=== PATIENT | male | born 1980 | race African-American/Black ===

== ENCOUNTER 2024-02-28 11:38 | Observation (INO) | payer OTHER, SELFPAY ==
[2024-02-28] VITALS (12 sets, daily range): BP systolic 114–133; BP diastolic 80–90; PULSE 68–92; RESP 18–26; TEMP 36.3–36.6; O2SAT 98–100; BMI 25.2
[2024-02-28 11:45] LABS: Glucose Point of Care > 500 mg/dl (65-105)
[2024-02-28 12:05] LABS: Basophils Absolute Auto 0.1 K/mm3 (0.0-0.1); Basophils Percent Auto 0.8 % (0.2-1.2); Eosinophils Absolute Auto 0.2 K/mm3 (0-0.3); Eosinophils Percent Auto 1.9 % (0-4.4); Hematocrit 47.2 % (42.0-52.0); Immature Granulocyte Absolute 0.04 K/mm3 (0.00-0.031); Immature Granulocyte Percent A 0.5 % (0-0.5); Lymphocytes Absolute Auto 2.63 K/mm3 (0.9-3.2); Lymphocytes Percent Auto 34.2 % (18.3-44.2); Mean Corpuscular HGB Conc 33.9 g/dl (32-36); Mean Corpuscular Hemoglobin 32.3 pg (26-34); Mean Corpuscular Volume 95.4 fl (80-100); Mean Platelet Volume 9.7 fl (7.4-10.4); Monocytes Absolute Auto 0.5 K/mm3 (0.1-0.6); Neutrophils Absolute Auto 4.4 K/mm3 (1.3-6.7); Neutrophils Percent Auto 56.6 % (45.5-73.1); Platelet Count Result 267 k/mm3 (150-375); Red Blood Count 4.95 M/mm3 (4.6-6.20); Red Cell Distribution Width 13.2 % (11.5-14.5); White Blood Count 7.7 K/mm3 (4.5-10.0)
[2024-02-28] MEDS: SODIUM CHLORIDE 0.9% IV 1,000 ML 999 ML IV CONT ×3 (12:12→13:24)
--- NOTE | 2024-02-28 12:13 | ED.RECABL ---
HPI - Recheck/Abnormal Lab/Rx General Chief Complaint: Recheck/Abnormal Lab/Rx <YASMIN Thakur Last Filed: 02/28/24 14:14> Stated Complaint: increased urination <YASMIN Thakur Last Filed: 02/28/24 14:14> Time Seen by Provider: 02/28/24 11:52 <YASMIN Thakur Last Filed: 02/28/24 14:14> Source: patient <YASMIN Thakur Last Filed: 02/28/24 14:14> Mode of arrival: ambulatory <YASMIN Thakur Last Filed: 02/28/24 14:14> Limitations: no limitations <YASMIN Thakur Last Filed: 02/28/24 14:14> History of Present Illness HPI narrative: Patient is a 43 y/o male who presents to the ED with c/o polyuria/polydipsia. Patient reports over the last 4 months, he has had increased urination, increased thirst, increased hunger. States he has to urinate every 10-15 minutes. Denies dysuria or hematuria. Friend at bedside states patient was brought here today to be evaluated for diabetes. Patient denies previous history of diabetes. He does have family history of diabetes in his mother. Patient also reports having a 15 lb weight loss in the last month and a half. Denies other illness, recent cough or cold symptoms, nausea, vomiting, abdominal or chest pain. Patient last saw a physician around 9 months ago. <YASMIN Thakur Last Filed: 02/28/24 14:14> Related Data Home Medications: Home Medications Medication Instructions Recorded Confirmed No Home Medications 02/28/24 02/28/24 <YASMIN Thakur Last Filed: 02/28/24 14:14> Allergies/Adverse Reactions: Allergies Allergy/AdvReac Type Severity Reaction Status Date / Time cephalexin [From Keflex] Allergy Unknown Verified 02/28/24 11:50 <YASMIN Thakur Last Filed: 02/28/24 14:14> Review of Systems Review of Systems: CONSTITUTIONAL: Denies fever, chills, or sweats. ENT: See HPI. CARDIOVASCULAR: Denies chest pain. RESPIRATORY: Denies dyspnea. GASTROINTESTINAL: Denies abdominal pain, nausea, vomiting. GENITOURINARY: See HPI. NEUROLOGIC: Denies headache, dizziness, numbness, or weakness. <Delmy Cee PA-C - Last Filed: 02/28/24 14:14> All systems reviewed & are unremarkable except as noted in HPI and below <Delmy Cee PA-C - Last Filed: 02/28/24 14:14> PMFSH Past Medical History Medical History: Medical History No pertinent past medical history <Delmy Cee PA-C - Last Filed: 02/28/24 14:14> Social History Social History: Social History (Updated 02/28/24 @ 14:36 by Rosario Roberson PA-C) Social History: Surrogate medical decision maker: Code status: Full code. Years smoked: 15 Smoking status: Current every day smoker Tobacco type: cigarettes Second hand tobacco smoke exposure: Yes Alcohol intake: former Substance use: former Substance use type: marijuana Do You Feel Safe in your Home?: Yes Lack of Transportation: No Lack of Food: Never True Current Housing: I Have Housing Concerned About Future Housing: No Difficulty Paying Gas/Electric Bills: No Difficulty Paying for Meds: No Currently Unemployed: No Education: High School Diploma/GED Difficulty w/ Childcare or Family Care: No Spiritual care concerns: No <Delmy Cee PA-C - Last Filed: 02/28/24 14:14> Exam Narrative: GENERAL: Well appearing, well-nourished, non-toxic, in no acute distress. HEAD: Normocephalic, atraumatic. RESPIRATORY: Airway patent, respirations nonlabored. Clear to auscultation bilaterally, no rales, rhonchi, wheezing. CARDIOVASCULAR: Regular rate and rhythm without murmurs, rubs, or gallops. MUSCULOSKELETAL: Moves all extremities. No gross deformities. SKIN: Warm, dry, normal color. NEURO: A&O X3. Speech clear. Cranial nerves II-XII grossly intact. Steady gait. No ataxic m
[2024-02-28 12:15] LABS: Lactic Acid Reflex 2.7 mmol/L (0.7-2.0)
[2024-02-28 12:19] LABS: Base Excess ABG -1.5 mEq/l (+/-2.0); Carboxyhemoglobin 3.1 % THb (0-2.0); Fractional Inspired Oxygen 21 %; HCO3 ABG 22.1 mEq/l (22.0-26.0); Methemoglobin ABG 0.1 %THb (0-1.5); Oxygen Content ABG 20.2 %vol (16.0-22.0); Oxyhemoglobin 92.5 % THb (90.0-100.0); PCO2 ABG 34.3 mmHg (35.0-45.0); PO2 ABG 78.7 mmHg (80.0-100.0); PO2 FiO2 Ratio Arterial Blood 3.75 %; Reduced Hemoglobin 4.3 %THb (0-5.0); Total Hemoglobin 15.5 g/dL (12.0-18.0); pH ABG 7.427 (7.350-7.450)
[2024-02-28 12:20] LABS: Beta-Hydroxybutyrate/Acetoacetate 1.95 mmol/L (0.02-0.27)
[2024-02-28 12:21] LABS: Device ROOM AIR; Site Drawn LEFT BRACHIAL
[2024-02-28 12:29] LABS: Appearance Urine Clear (Clear); Bacteria Urine None Seen /hpf; Bilirubin Urine Negative (Negative); Blood Urine 1+ (Negative); Color Urine Yellow (Yellow); Glucose Urine UA 3+ mg/dL (Negative); Ketones Urine 1+ mg/dL (Negative); Leukocyte Esterase Ur Negative LEU/UL (Negative); Need Manual Microscopic Reviewed; Nitrate Urine Negative (Negative); Non Pathogenic Casts 0-2; Protein Urine Negative (Negative); Squamous Epithelial Cell Urine None Seen /hpf (Few); Urobilinogen Urine 0.2 mg/dL (<2.0); WBC Urine 0-5 /hpf (0-3)
[2024-02-28 12:30] LABS: Add Urine Microscopic? YES; Specific Grav Ur 1.035 (1.001-1.035)
[2024-02-28 12:49] LABS: Alanine Aminotransferase 20 U/L (6-50); Albumin Level 3.9 g/dL (3.5-5.1); Alkaline Phosphatase 189 U/L (38-126); Anion Gap 12 mmol/L (4-12); Aspartate Amino Transferase 22 U/L (17-59); Bilirubin,Total 0.6 mg/dL (0.2-1.3); Blood Urea Nitrogen 15 mg/dL (9-20); Calcium 8.9 mg/dL (8.4-10.2); Carbon Dioxide 21 mmol/L (22-30); Chloride 100 mmol/L (98-107); Estimated CRCL calculation 106 ml/min; Estimated Glomerular Filt Rate > 60; Magnesium 1.8 mg/dL (1.6-2.3); Phosphorus 4.1 mg/dL (2.5-4.5); Potassium 5.4 mmol/L (3.4-5.0); Sodium 133 mmol/L (137-145)
[2024-02-28 12:51] LABS: Hemoglobin A1C > 14.0 % (<5.7)
[2024-02-28 12:58] LABS: Glucose 681 mg/dL (65-110)
--- NOTE | 2024-02-28 13:14 | ECG_ITS ---
SEE SCANNED COPY FOR CONFIRMED REPORT MTDD
[2024-02-28] MEDS: INSULIN HUMAN REGULAR (*BKC) 100 UNITS/ML 10 UNITS IV PUSH (13:24)
[2024-02-28 14:10] LABS: Glucose Point of Care 293 mg/dl (65-105)
--- NOTE | 2024-02-28 14:17 | PM.IMHP ---
H&P: HPI History of Present Illness Date/Time: 02/28/24 14:15 Chief Complaint: Weakness, weight loss, increased thirst and urination. Narrative: This is a pleasant 43-year-old male who presented to the emergency department via private vehicle for evaluation of weakness, weight loss, and increased thirst and urination. The patient provides the following history. The last several months he has noticed an increase in thirst and urination and he has lost about 15 lb in the same time frame. He is now starting to feel weak and unwell and came in for evaluation. Labs were significant for a sodium of 133, potassium 5.4, carbon dioxide 21, anion gap 12, random glucose 681, beta hydroxybutyrate 1.95, lactic acid 2.7. Urine was positive for 3+ glucose, 1+ ketones. ABG showed a pH of 7.427, pCO2 34.3, bicarb 22.1. He was given 3 L normal saline and 10 units IV insulin and he is being admitted in this setting. He has never been diagnosed with prediabetes or diabetes. He reports a strong family history of type 2 diabetes. He denies blurry vision, paresthesias, rashes, and nonhealing wounds. Review of Systems Review of Systems: 12 systems were reviewed and are negative except for as per HPI. [facility] Past Medical History Medical History No pertinent past medical history Surgical History Surgical History (Updated 02/28/24 @ 21:17 by Rosario Roberson PA-C) No history of previous surgery Family History Family History (Updated 02/28/24 @ 21:17 by Rosario Roberson PA-C) Other Diabetes mellitus Social History Social History (Updated 02/28/24 @ 21:18 by Rosario Roberson PA-C) Social History: Surrogate medical decision maker: Prashant Bullock, mother. Code status: Full code. Smoking packs per day: 0.15 Smoking cigarettes per day: 3.0 Years smoked: 15 Smoking pack-years: 2.25 Smoking status: Current every day smoker Tobacco type: cigarettes Second hand tobacco smoke exposure: Yes Alcohol intake: former Substance use: former Substance use type: marijuana Do You Feel Safe in your Home?: Yes Lack of Transportation: No Lack of Food: Never True Current Housing: I Have Housing Concerned About Future Housing: No Difficulty Paying Gas/Electric Bills: No Difficulty Paying for Meds: No Currently Unemployed: No Education: High School Diploma/GED Difficulty w/ Childcare or Family Care: No Spiritual care concerns: No Meds Home Medications and Allergies Home Medications Medication Instructions Recorded Confirmed Type No Home Medications 02/28/24 02/28/24 History Allergies Allergy/AdvReac Type Severity Reaction Status Date / Time cephalexin [From Keflex] Allergy Unknown Verified 02/28/24 11:50 Vital Signs Vital Signs - 24 hr 02/28/24 11:42 02/28/24 13:26 Temperature 97.5 F L Pulse Rate 92 84 Respiratory Rate 22 H 26 H Blood Pressure 115/90 125/83 Pulse Oximetry 99 100 Oxygen Delivery Room Air Exam Narrative: General: Well-developed, nontoxic-appearing gentleman supine in bed in no distress. Weight: 79.8 kg. BMI: 25.2. HEENT: Wearing corrective lenses. PERRL, EOMI. Sclera anicteric. Oral mucosa moist. Neck: Supple. Respiratory: Lungs are clear to auscultation bilaterally. Cardiovascular: Regular rate and rhythm with S1-S2. Gastrointestinal: Abdomen is soft, nontender, and nondistended with positive bowel sounds. Skin: Warm and dry. No rash or lesions on limited exam. Extremities: No cyanosis, clubbing, or edema. Radial and pedal pulses intact. Neurological: Alert. Cranial nerves 2-12 are grossly intact. No gross focal deficits to casual conversation. Psychiatric: Pleasant and cooperative with normal mood and affect. Judgment and insight intact. H&P: Results Labs Labs: Short CBC 02/28/24 Range/Units 11:57 WBC 7.7 (4.5-10.0) K/mm3 Hgb 16.0 (14.0-18.0) g/dL Hct 47
--- NOTE | 2024-02-28 14:19 | PC.NURSE ---
Carmen called the to give ask if this RN had any questions on the pt prior to transfer to the unit. Due to Care coordination the ED chart has not been reviewed per this RN. Unable to obtain proper phone report from Carmen DIXON. This RN endorsed to Carmen RN will review chart et POC et call Carmen back with question prior to the pt transfer from ED to IMU.
--- NOTE | 2024-02-28 14:24 | PC.NURSE ---
Report given Carmen IDXON the chart has been reviewed questioned K levels.
--- NOTE | 2024-02-28 14:30 | PC.NURSE ---
Report given to Rosario STAFFORD the pt is on the unit.
--- NOTE | 2024-02-28 14:38 | ADMGEN ---
This patient, Jordy Jones, was admitted to IMU Room 214-01. Patient/family oriented to hospital policies and general routines including ID bracelet, bed and alarms, visiting hours, pain management, procedures, bathroom and other care routines, personal items, smoking policy, room service/diet, and visiting hours. Information on how to activate the Rapid Response Team has been discussed. Patient/Family are encouraged to report perceived risks to care and to ask questions if they do not understand what they are told or what they should do.
[2024-02-28 14:44] LABS: Glucose Point of Care 261 mg/dl (65-105)
[2024-02-28 15:03] LABS: Reflex Lactic Acid Yes or No Add Lactic
[2024-02-28 15:42] LABS: Anion Gap 6 mmol/L (4-12); Blood Urea Nitrogen 13 mg/dL (9-20); Calcium 8.8 mg/dL (8.4-10.2); Carbon Dioxide 21 mmol/L (22-30); Chloride 112 mmol/L (98-107); Estimated CRCL calculation 120 ml/min; Estimated Glomerular Filt Rate > 60; Glucose 216 mg/dL (65-110); Potassium 4.4 mmol/L (3.4-5.0); Sodium 139 mmol/L (137-145)
[2024-02-28 15:43] LABS: Lactic Acid 1.8 mmol/L (0.7-2.0)
[2024-02-28 16:30] LABS: Glucose Point of Care 208 mg/dl (65-105)
[2024-02-28 16:59] LABS: Glucose Point of Care 203 mg/dl (65-105)
[2024-02-28 17:45] LABS: Glucose Point of Care 221 mg/dl (65-105)
[2024-02-28 18:52] LABS: Glucose Point of Care 424 mg/dl (65-105)
--- NOTE | 2024-02-28 18:54 | PC.NURSE ---
Report given to Rosario that the pts BGM is 424. Per Jenifer will add interventions
[2024-02-28] MEDS: INSULIN ASPART (*BKC) 100 UNITS/ML 8 UNITS SUB-Q (20:04)
[2024-02-28 20:07] LABS: Glucose Point of Care > 500 mg/dl (65-105)
--- NOTE | 2024-02-28 21:01 | PC.NURSE ---
Patient's blood sugar 511 after receiving one time dose of 8 units of Novolog. Da NORIEGA notified with orders to give 3 units of sliding scale insulin and 16 units of lantus and to recheck blood sugar at midnight and notify.
[2024-02-28 21:05] LABS: Glucose Point of Care > 500 mg/dl (65-105)
[2024-02-28] MEDS: INSULIN ASPART (*BKC) 100 UNITS/ML SUB-Q (21:13)
[2024-02-28] MEDS: INSULIN GLARGINE (*BKC) 100 UNITS/ML 16 UNITS SUB-Q (21:14)
[2024-02-28 22:35] LABS: Glucose Point of Care 330 mg/dl (65-105)
[2024-02-28 23:39] LABS: Glucose Point of Care 274 mg/dl (65-105)
--- NOTE | 2024-02-28 23:48 | PC.NURSE ---
Notified Da NORIEGA of 274 blood sugar. Da NORIEGA with orders to recheck blood sugar at 0300. If blood sugar is less than 125, no new orders and if blood sugar is greater than 300 to call .
[2024-02-29] VITALS (11 sets, daily range): BP systolic 99–118; BP diastolic 66–79; PULSE 61–84; RESP 16–17; TEMP 36.5–36.8; O2SAT 97–100; BMI 25.2
--- NOTE | 2024-02-29 02:56 | PC.NURSE ---
Patient's blood sugar 229, no intervention needed per Da NORIEGA orders.
[2024-02-29 03:04] LABS: Glucose Point of Care 229 mg/dl (65-105)
[2024-02-29 05:02] LABS: Anion Gap 7 mmol/L (4-12); Blood Urea Nitrogen 11 mg/dL (9-20); Carbon Dioxide 23 mmol/L (22-30); Chloride 106 mmol/L (98-107); Cholesterol 203 mg/dL (0-200); Estimated CRCL calculation 120 ml/min; Estimated Glomerular Filt Rate > 60; Glucose 231 mg/dL (65-110); HDL Direct 32 mg/dL; Magnesium 1.8 mg/dL (1.6-2.3); Potassium 3.5 mmol/L (3.4-5.0); Sodium 136 mmol/L (137-145); Triglycerides 328 mg/dL (<150)
[2024-02-29 05:13] LABS: LDL Cholesterol Direct 107 mg/dL
[2024-02-29 07:39] LABS: Glucose Point of Care 248 mg/dl (65-105)
[2024-02-29] MEDS: metFORMIN HCL 500 MG TABLET PO (08:20)
[2024-02-29] MEDS: INSULIN ASPART (*BKC) 100 UNITS/ML SUB-Q ×2 (08:20→11:46)
[2024-02-29 11:40] LABS: Glucose Point of Care 253 mg/dl (65-105)
--- NOTE | 2024-02-29 14:32 | PM.DS ---
DS: Admitting Diagnosis Discharge Date 02/29/2024 Admitting Diagnosis Weakness, weight loss, increased thirst and urination. DS: Discharge Diagnosis Discharge Diagnosis (1) New onset type 2 diabetes mellitus: Code(s): E11.9 - Type 2 diabetes mellitus without complications Status: Acute Assessment and Plan: 43-year-old male who presented to the emergency department via private vehicle for evaluation of weakness, weight loss, and increased thirst and urination. The patient provides the following history. The last several months he has noticed an increase in thirst and urination and he has lost about 15 lb in the same time frame. He is now starting to feel weak and unwell and came in for evaluation. Labs were significant for a sodium of 133, potassium 5.4, carbon dioxide 21, anion gap 12, random glucose 681, beta hydroxybutyrate 1.95, lactic acid 2.7. Urine was positive for 3+ glucose, 1+ ketones. ABG showed a pH of 7.427, pCO2 34.3, bicarb 22.1. He was given 3 L normal saline and 10 units IV insulin and he is being admitted in this setting. He has never been diagnosed with prediabetes or diabetes. found to have new onset DM. strong FH (2) Hyperkalemia: Code(s): E87.5 - Hyperkalemia Status: Acute (3) Elevated lactic acid level: Code(s): R79.89 - Other specified abnormal findings of blood chemistry Status: Acute DS: Summary Hospital Course Hospital Course: The patient presented to the emergency department for evaluation of weakness, weight loss, and increased thirst and urination as per HPI. Labs, imaging, EKG, and all reports were personally reviewed. Random glucose was over 600 and hemoglobin A1c was greater than 14%. He was aggressively hydrated and received IV insulin with improvement in his glucose. He will be started on Lantus and metformin. Dietitian and special educator consulted. High potassium should improve with IV fluids and insulin. Lactic acid level is likely elevated due to lab draw technique; he gives no history to suggest underlying infection. Vital signs were reviewed and they are stable. Smoking cessation is encouraged and was discussed. He declines the need for nicotine a patch. Labs, imaging, EKG, and all reports were personally reviewed. Pt new onset DM, pt received DM education in hospital. and was started on lantus pens on DC. Time Spent with Patient Time attestation: Total time spent providing and/or coordinating discharge services:45 minutes on day of DC Exam Narrative: General: Well-developed, nontoxic-appearing gentleman supine in bed in no distress. Weight: 79.8 kg. BMI: 25.2. HEENT: Wearing corrective lenses. PERRL, EOMI. Sclera anicteric. Oral mucosa moist. Neck: Supple. Respiratory: Lungs are clear to auscultation bilaterally. Cardiovascular: Regular rate and rhythm with S1-S2. Gastrointestinal: Abdomen is soft, nontender, and nondistended with positive bowel sounds. Skin: Warm and dry. No rash or lesions on limited exam. Extremities: No cyanosis, clubbing, or edema. Radial and pedal pulses intact. Neurological: Alert. Cranial nerves 2-12 are grossly intact. No gross focal deficits to casual conversation. Psychiatric: Pleasant and cooperative with normal mood and affect. Judgment and insight intact. DS: Data Data Completed and Pending Labs on day of discharge: Labs from last 24 hours 02/29/24 02/29/24 02/29/24 11:38 07:29 04:23 Sodium 136 L Potassium 3.5 Chloride 106 Carbon Dioxide 23 Anion Gap 7 BUN 11 Creatinine 0.70 Estim Creat Clear Calc 120 Estimated GFR > 60 Glucose 231 H POC Capillary Glucose 253 H 248 H Lactic Acid Calcium 9.0 Magnesium 1.8 Triglycerides 328 H Cholesterol 203 H LDL Cholesterol Direct 107 HDL Direct 32 02/29/24 02/28/24 02/28/24 02:56 23:36 22:25 Sodium Potassium Chloride Carbon Dioxide Anion Gap BUN Creatinine Estim Cre
== END 2024-02-29 14:55 | disposition home or self-care (01) ==
LOC: ANHED 13:31 → ANHIMU 15:49
PROVIDERS: Emergency Medicine; Physician Assistant; Admitting Provider Hospitalist; Emergency Provider Physician Assistant; Visit Provider Family Medicine
DX: E11.65 Type 2 diabetes mellitus with hyperglycemia (principal); E87.5 Hyperkalemia; E87.20 Acidosis, unspecified; F17.210 Nicotine dependence, cigarettes, uncomplicated
CPT/HCPCS: 36415; 36600; 80048; 80053; 80061; 81001; 82010; 82375; 82805; 82948; 83036; 83050; 83605; 83735; 84100; 85025; 93005; 96361; 96374; 99285; A9270; G0378; G0379; J1815; J7030